=== PATIENT | male | born 1960 | race African-American/Black ===

== ENCOUNTER 2018-06-01 18:59 | Inpatient (IN) | payer MEDICAID ==
[~2018-06-01] VITALS: Ht 180.3 cm; Wt 69.9 kg
--- NOTE | 2018-06-01 19:06 | NUR ---
ED Nurse Note: Patient biba, d/t hypotensive episode. PAtient had dialysis yesterday. patient vital signs stable at this time. EMT started bolus of 500ml ns.
[2018-06-01] MEDS ORDERED: DILANTIN100 MG ORAL (19:07)
[2018-06-01] MEDS ORDERED: COLACE100 MG ORAL (19:07)
[2018-06-01] MEDS ORDERED: PRAVACHOL40 MG ORAL (19:07)
[2018-06-01] MEDS ORDERED: TYLENOL325 MG ORAL (19:07)
[2018-06-01] MEDS ORDERED: PROTONIX20 MG ORAL (19:07)
[2018-06-01] MEDS ORDERED: MOM30 ML ORAL (19:07)
[2018-06-01] MEDS ORDERED: CLONIDINE0.1 MG PO (19:07)
[2018-06-01] MEDS ORDERED: NORMODYNE300 MG ORAL (19:07)
[2018-06-01] MEDS ORDERED: FLEET ENEMA133 M1 RC (19:07)
[2018-06-01] MEDS ORDERED: ASPIR 8181 MG ORAL (19:07)
[2018-06-01] MEDS ORDERED: NORCO 5-325 TA1 EACH ORAL (19:07)
[2018-06-01] MEDS ORDERED: DULCOLAX10 MG RC ×2 (19:07→21:04)
[2018-06-01 19:08] VITALS: BP 108/64
--- NOTE | 2018-06-01 19:48 | NUR ---
ED Nurse Note: Patient started on 1/2 liter of normal saline bolus. vital signs stable, labs drawn. patient is A&Ox4, no signs/ symptoms of acute distress.
[2018-06-01 19:49] VITALS: BP 110/52
[2018-06-01 19:52] LABS: HEMATOCRIT 34.4 % (42.0-52.0); HEMOGLOBIN 11.4 G/DL (14.2-18.0); MEAN CORPUSCULAR VOLUME 79 FL (80-99); PLATELET COUNT 92 K/UL (150-450); RED BLOOD COUNT 4.35 M/UL (4.70-6.10); RED CELL DISTRIBUTION WIDTH 13.4 % (11.6-14.8)
[2018-06-01 20:04] LABS: ANION GAP 11 mmol/L (5-15); BLOOD UREA NITROGEN 56 mg/dL (7-18); CALCIUM 7.3 MG/DL (8.5-10.1); CARBON DIOXIDE 27 MMOL/L (21-32); CHLORIDE 97 MMOL/L (98-107); CREATININE 10.1 MG/DL (0.55-1.30); POTASSIUM 4.4 MMOL/L (3.5-5.1); SODIUM 135 MMOL/L (136-145)
[2018-06-01 20:17] LABS: ALANINE AMINOTRANSFERASE 24 U/L (12-78); ALBUMIN 3.4 G/DL (3.4-5.0); ALKALINE PHOSPHATASE 325 U/L (46-116); ASPARTATE AMINO TRANSFERASE 26 U/L (15-37); BILIRUBIN,TOTAL 0.3 MG/DL (0.2-1.0); CKMB 4.5 NG/ML (0.0-3.6); CREATINE KINASE 400 U/L (26-308)
[2018-06-01 20:24] VITALS: BP 118/57
--- NOTE | 2018-06-01 20:24 | NUR ---
ED Nurse Note: Patient is resting comfortably in and out of sleep. Vital signs stable.
[2018-06-01] MEDS ORDERED: CATAPRES0.1 MG ORAL (20:57)
[2018-06-01] MEDS ORDERED: AMLODIPINE BESY10 MG ORAL (20:57)
[2018-06-01] MEDS ORDERED: FLEET ENEMA133 ML RECTAL (21:04)
[2018-06-01] MEDS ORDERED: MILK OF MA400 MG/51 ORAL (21:04)
[2018-06-01] MEDS ORDERED: MINOXIDIL2.5 MG PO ×2 (21:04)
--- NOTE | 2018-06-01 21:08 | Emergency Room Report ---
History of Present Illness General Chief Complaint: General Complaint Source: Patient, EMS Present Illness HPI Patient presents from facility with reports of low blood pressure Patient had dialysis yesterday is due for dialysis tomorrow Has significant renal failure on dialysis and eyes any chest pain He does report general weakness and eyes any diarrhea denies any chest pain or shortness of breath denies any vomiting or diarrhea Denies any change in medications Allergies: Coded Allergies: No Known Allergies (Unverified , 06/01/18) Patient History Past Medical History: see triage record Pertinent Family History: none Reviewed Nursing Documentation: PMH: Agreed; PSxH: Agreed Nursing Documentation-PMH Past Medical History: No History, Except For Hx Seizures: Yes Review of Systems All Other Systems: negative except mentioned in HPI Physical Exam Vital Signs Date Time Temp Pulse Resp B/P (MAP) Pulse Ox O2 Delivery O2 Flow Rate FiO2 06/01/18 18:53 97.3 70 16 108/64 99 Nasal Cannula 2.0 Sp02 EP Interpretation: reviewed, normal General Appearance: no apparent distress Head: normocephalic, atraumatic Eyes: bilateral eye PERRL, bilateral eye EOMI ENT: hearing grossly normal, normal pharynx, TMs + canals normal, uvula midline Neck: full range of motion, supple, no meningismus, no bony tend Respiratory: lungs clear, normal breath sounds, no rhonchi, no respiratory distress, no retraction, no accessory muscle use Cardiovascular #1: normal peripheral pulses, regular rate, rhythm, no edema, no gallop, no JVD, no murmur Gastrointestinal: normal bowel sounds, non tender, soft, no mass, no organomegaly, non-distended, no guarding, no hernia, no pulsatile mass, no rebound Genitourinary: no CVA tenderness Musculoskeletal: normal inspection Neurologic: oriented x3, responsive, chemical process equipment operator III-XII nml as tested, motor strength/ tone normal, sensory intact Psychiatric: mood/affect normal Skin: warm/dry, palpation normal, other - Jaundice appearance Lymphatic: normal inspection, no adenopathy Medical Decision Making Diagnostic Impression: Primary Impression: Hypotension Additional Impression: Renal failure ER Course Patient is a fairly complex patient with multiple differential to consideration including but not limited to cardiac cardiopulmonary and vascular emergencies Infectious pathology also entertained highly hemodynamic instability patient had small bolus of fluids has responded well given his presentation and reports will be admitted for further inpatient care Labs Test 06/01/18 19:39 White Blood Count 6.0 K/UL (4.8-10.8) Red Blood Count 4.35 M/UL (4.70-6.10) Hemoglobin 11.4 G/DL (14.2-18.0) Hematocrit 34.4 % (42.0-52.0) Mean Corpuscular Volume 79 FL (80-99) Mean Corpuscular Hemoglobin 26.1 PG (27.0-31.0) Mean Corpuscular Hemoglobin Concent 33.0 G/DL (32.0-36.0) Red Cell Distribution Width 13.4 % (11.6-14.8) Platelet Count 92 K/UL (150-450) Mean Platelet Volume 7.3 FL (6.5-10.1) Neutrophils (%) (Auto) % (45.0-75.0) Lymphocytes (%) (Auto) % (20.0-45.0) Monocytes (%) (Auto) % (1.0-10.0) Eosinophils (%) (Auto) % (0.0-3.0) Basophils (%) (Auto) % (0.0-2.0) Sodium Level 135 MMOL/L (136-145) Potassium Level 4.4 MMOL/L (3.5-5.1) Chloride Level 97 MMOL/L (98-107) Carbon Dioxide Level 27 MMOL/L (21-32) Anion Gap 11 mmol/L (5-15) Blood Urea Nitrogen 56 mg/dL (7-18) Creatinine 10.1 MG/DL (0.55-1.30) Estimat Glomerular Filtration Rate 6.5 mL/min (>60) Glucose Level 125 MG/DL (74-106) Calcium Level 7.3 MG/DL (8.5-10.1) Total Bilirubin 0.3 MG/DL (0.2-1.0) Aspartate Amino Transf (AST/SGOT) 26 U/L (15-37) Alanine Aminotransferase (ALT/SGPT) 24 U/L (12-78) Alkaline Phosphatase 325 U/L (46-116) Total Creatine Kinase 400 U/L (26-308) Creatine Kinase MB 4.5 NG/ML (0.0-3.6) Creatine Kinase MB Relative Index 1.1 Troponin I 0.065 ng/mL (0.000-0.056) Total Protein 6.9 G/DL (6.4-8.2) Albumin 3.4 G/DL (3.4-5.0) Globulin 3.5 g/dL Albumin/Globulin Ratio 1.0 (1.0-2.7) Lipase 546 U/L (73-393) Rhythm Strip Diag. Results EP Interpretation: yes Rate: 60 Rhythm: NSR, no PVC's, no ectopy Chest X-Ray Diagnostic Results Chest X-Ray Diagnostic Results : Chest X-Ray Ordered: Yes # of Views/Limited/Complete: 1 View Indication: Chest Pain EP Interpretation: Yes Interpretation: no consolidation, no effusion, no pneumothorax Impression: No acute disease - Mild pulmonary congestion Electronically Signed by: Marissa Chan DO Last Vital Signs Date Time Temp Pulse Resp B/P (MAP) Pulse Ox O2 Delivery O2 Flow Rate FiO2 06/01/18 20:24 97.3 68 15 118/57 100 Room Air 68 06/01/18 19:08 2.0 Status: improved Disposition: ADMITTED INPATIENT Condition: Serious Marissa Chan DO Jun 01, 2018 21:08
[2018-06-01] MEDS ORDERED: SENSIPAR90 MG PO (21:09)
[2018-06-01] MEDS ORDERED: SENNA8.6 M2 PO (21:09)
[2018-06-01] MEDS ORDERED: RENA-VITE TABL0.8 M1 PO (21:09)
[2018-06-01] MEDS ORDERED: VITAMIN D1000 UNI1 ORAL (21:09)
[2018-06-01] MEDS ORDERED: ACETAMINOPHEN325 M1 ORAL (21:09)
--- NOTE | 2018-06-01 21:46 | NUR ---
ED Nurse Note: Patient cleared for transport for admission, Patient a&ox4, ambulatory, no skin issues, swabs done r/t dialysis and snf, belongings sheet completed, report called in to Mackenzie SMITH prior to transport. Patient transported to [facility] by RN and Andie along with director of cardiac rehabilitation. Patient stable upon arrival to floor.
--- NOTE | 2018-06-01 21:50 | NUR ---
NURSE NOTES: Received report from Charito Das ED RN. Pt came via vee w/o incident. Belonging checked and nick setter applied. SR 60 in the monitor. Seizure precaution was done with side rails padded x2 and up. Safety measures are applied w/ bed alarm on, bed in lowest position, side rials up x2, and breaks are engaged. IV site is at LFA 18G with SL and AV shunt is at Left thigh femoral vein, asymptomatic. Will contact PCP to complete admission orders. Addendum: 06/01/18 at 8282 by CINTHYA ARRINGTON RN Paged second attempt to Dr. Ibarra at , awaiting call back. Addendum: 06/02/18 at 0029 by CINTHYA ARRINGTON RN Dr. Ibarra called and gave admission orders of full code, Renal diet, Heparin 5000 unit sq Q12HR. Plt 92 reported, no parameter given by PCP. Other abnormal labts reported, and Dr. Ibarra stated that all of labs would be corrected after HD next day.
[2018-06-01 22:00] VITALS: BP 134/87
[2018-06-02] VITALS: BP 144/79
[2018-06-02] MEDS ORDERED: Milk of Magnesia 30ml Ud ORAL PRN
[2018-06-02] MEDS: Norco 5mg/325mg tab ORAL PRN ×3 (00:54→17:41)
--- NOTE | 2018-06-02 02:25 | NUR ---
NURSE NOTES: NURSE NOTES: Pt is sleeping in the bed w/o distress. SR in the monitor, VSS. Will continue to monitor.
[2018-06-02 04:00] VITALS: BP 147/77
--- NOTE | 2018-06-02 06:13 | NUR ---
NURSE NOTES: Pt is receiving HD by [facility]. Pt is tolerating well with it. HD nurse said he did not have to give Hep 2000 unit for HD at this time.
--- NOTE | 2018-06-02 07:23 | NUR ---
HAND-OFF: Report given to Nick Huff RN. Endorsed plans of care.
--- NOTE | 2018-06-02 07:25 | NUR ---
NURSE NOTES: Pt received from LUIS Mann alert and oriented x3, talking and mumbling to himself. Pt complains of 10/10 aching pain in lower legs. No complaints or s/s of pain or SOB. RN informed pt that she will administer pain medication with morning meds if his BP is stable, pt nodded his head. IV site asymptomatic and patent. HD nurse finished scheduled HD and stated that pt had 2.5 L output. IV site asymptomatic and patent. Bed in lowest position, call light and belongings within reach.
[2018-06-02 07:30] LABS: HEMATOCRIT 36.2 % (42.0-52.0); HEMOGLOBIN 12.4 G/DL (14.2-18.0); MEAN CORPUSCULAR VOLUME 78 FL (80-99); PLATELET COUNT 99 K/UL (150-450); RED BLOOD COUNT 4.67 M/UL (4.70-6.10); RED CELL DISTRIBUTION WIDTH 13.4 % (11.6-14.8); WHITE BLOOD COUNT 5.2 K/UL (4.8-10.8)
[2018-06-02 07:56] LABS: ANION GAP 11 mmol/L (5-15); BLOOD UREA NITROGEN 42 mg/dL (7-18); CALCIUM 8.3 MG/DL (8.5-10.1); CARBON DIOXIDE 26 MMOL/L (21-32); CHLORIDE 100 MMOL/L (98-107); CREATININE 7.3 MG/DL (0.55-1.30); PHOSPHORUS 3.4 MG/DL (2.5-4.9); POTASSIUM 4.6 MMOL/L (3.5-5.1); SODIUM 137 MMOL/L (136-145)
[2018-06-02 08:00] VITALS: BP 117/62
[2018-06-02] MEDS: Sensipar 30mg Tab ORAL SCH (08:09)
[2018-06-02] MEDS: Phenytoin 100mg cap ORAL SCH ×2 (08:09→17:40)
[2018-06-02] MEDS: Docusate 100mg cap ORAL SCH (08:09)
[2018-06-02] MEDS: Vitamin D 1000 IU Tab ORAL SCH (08:09)
[2018-06-02] MEDS: Nephrovite tab (Rena-Vite) ORAL SCH (08:09)
[2018-06-02] MEDS: Aspirin Baby 81mg ORAL SCH (08:09)
[2018-06-02] MEDS: Heparin 5000 units/ml inj SUBQ SCH ×2 (08:18→21:00)
--- NOTE | 2018-06-02 11:39 | Diagnostic Imaging Report ---
Indication: Chest Comparison: 03/23/2009 A single view chest radiograph was obtained. Findings: Some vascular prominence demonstrated. Cardiomegaly is present. Bones are osteopenic. No pleural effusion seen. IMPRESSION: Vascular prominence without overt CHF.
[2018-06-02 12:00] VITALS: BP 140/75
--- NOTE | 2018-06-02 13:40 | Cardiology Report ---
APPROVED REPORT EKG Measurement Heart [id number] Sinus rhythm with 1st degree AV block Left anterior fascicular block Anterolateral infarct, age undetermined Abnormal ECG
[2018-06-02 16:00] VITALS: BP_SYST 132; BP_SYST 133; BP_SYST 135; BP_SYST 136; BP_DIAS 75; BP_DIAS 82; BP_DIAS 83
--- NOTE | 2018-06-02 19:10 | NUR ---
CASE MANAGEMENT: REVIEW 57/M BIBA FROM [facility] CC: HYPOTENSION BP 85/42 SI: RENAL FAILURE T 97.3 HR 70 RR 16 BP 110/52 SAT 99% NC/2L NA 135 BUN 56 CR 10.1 TROPONIN I 0.065 LIPASE 546 IS: NS IVF BOLUS X1 PATIENT ADMITTED TO TELEMETRY UNIT 06/01/2018 DCP: PATIENT IS FROM [facility]
--- NOTE | 2018-06-02 19:20 | NUR ---
NURSE NOTES: Received pt. and report from LUIS Larson. Observe pt. resting in bed with eyes open. desk monitor is in placed, IV site intact, asymptomatic and patent. Bed is in the lowest position and locked, call light within reach. Seizure precaution noted; no seizures at this time. No acute distress noted at this time. Will continue plan of care.
--- NOTE | 2018-06-02 19:30 | NUR ---
HAND-OFF: Report given to Roxane Holland RN.
[2018-06-02 20:00] VITALS: BP_SYST 123; BP_SYST 143; BP_SYST 150; BP_DIAS 69; BP_DIAS 72; BP_DIAS 74
[2018-06-02] MEDS: Sennosides 8.6mg tab ORAL SCH (21:06)
[2018-06-02] MEDS ORDERED: Heparin Sod 1000 units/ml 10ml IV ONE (22:30)
[2018-06-03] VITALS: BP 121/73
[2018-06-03 04:00] VITALS: BP 147/75
[2018-06-03] MEDS: Norco 5mg/325mg tab ORAL PRN (05:02)
--- NOTE | 2018-06-03 07:00 | NUR ---
HAND-OFF: Report given to LUIS Larson.
--- NOTE | 2018-06-03 07:15 | NUR ---
NURSE NOTES: Pt received from My Amalia, RN alert and oriented x2 with no complaints or s/s of pain, SOB, or n/v. 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 IV site asymptomatic and patent. Bed in lowest position, call light and belongings within reach.
[2018-06-03 08:00] VITALS: BP_SYST 129; BP_SYST 135; BP_SYST 137; BP_SYST 139; BP_DIAS 78; BP_DIAS 80; BP_DIAS 81; BP_DIAS 85
[2018-06-03] MEDS: Docusate 100mg cap ORAL SCH (08:39)
[2018-06-03] MEDS: Sensipar 30mg Tab ORAL SCH (08:39)
[2018-06-03] MEDS: Nephrovite tab (Rena-Vite) ORAL SCH (08:40)
[2018-06-03] MEDS: Heparin 5000 units/ml inj SUBQ SCH ×2 (08:40→20:20)
[2018-06-03] MEDS: Aspirin Baby 81mg ORAL SCH (08:40)
[2018-06-03] MEDS: Vitamin D 1000 IU Tab ORAL SCH (08:40)
[2018-06-03] MEDS: Phenytoin 100mg cap ORAL SCH ×2 (08:40→17:29)
--- NOTE | 2018-06-03 08:45 | History and Physical Report ---
CHIEF COMPLAINT: Dizziness. HISTORY OF PRESENT ILLNESS: This is a 67-year-old male who is a resident of [facility]. The patient was sent via 911 to this hospital's emergency department after experiencing the dizziness and hypotension. His systolic blood pressure went down to 70. The patient was seen in the ER. He was given a bolus of IV fluids and his blood pressure systolic went up to more than 100. PAST MEDICAL HISTORY: 1. End-stage renal failure on dialysis. 2. Seizure disorder. 3. Anemia of chronic kidney disease. 4. Hypertensive cardiovascular disease. HOME MEDICATIONS: 1. Tylenol p.r.n. 2. Amlodipine. 3. Baby aspirin. 4. Dulcolax. 5. Vitamin D3. 6. Sensipar. 7. Catapres. 8. Colace. 9. Keri-David. 10. Labetalol. 11. Milk of magnesia. 13. Fleet enema. 14. Protonix. 15. Dilantin. 16. Pravachol. 17. Senna. 18. Dilantin. ALLERGIES: No known drug allergies. FAMILY HISTORY: Unremarkable. SOCIAL HISTORY: He lives in a half-way. HABITS: He is nonsmoker and nondrinker. There is no history of illicit drug abuse. REVIEW OF SYSTEMS: HEENT: Hearing and eyesight are normal. CARDIAC: He denies chest pain or palpitations. GASTROINTESTINAL: No history of hematochezia, melena, hematemesis, diarrhea, or constipation. NEUROLOGICAL: Significant for history of seizures. PHYSICAL EXAMINATION: GENERAL: This is an elderly male who is in no acute distress. VITAL SIGNS: Blood pressure 140/75, pulse 68 regular, respirations 20, and temperature 97.4. HEENT: The head is normocephalic and atraumatic. Pupils are equal, round, and reactive to light and accommodation consensually. NECK: Supple. Trachea midline. There was no lymphadenopathy or thyromegaly. LUNGS: Clear to auscultation and percussion. HEART: Regular rate and rhythm without rubs, murmurs, or gallops. ABDOMEN: Soft and nontender. Bowel sounds were active. EXTREMITIES: No clubbing, cyanosis, or edema. He has a left groin fistula with thrill and bruit. NEUROLOGICAL: He is alert and oriented x4. Cranial nerves II through XII intact. LABORATORY AND ANCILLARY DATA: CBC within normal limits. Serum chemistry, BUN predialysis 42, creatinine 7.3, electrolytes within normal limits. Troponin level 0.065. ASSESSMENT: 1. Hypotension due to overmedication with blood pressure pills. 2. End-stage renal failure on dialysis. 3. Seizure disorder. 4. Anemia of chronic kidney disease. 5. Hypertensive cardiovascular disease. PLAN: 1. His blood pressure therapy has been readjusted aggressively with holding most of the blood pressure medications. 2. Hemodialysis done already today. 3. Check orthostatic vital signs. Claudia Camp M.D. DR: Radha JOB#: [id number] CC: ARNEL
[2018-06-03 12:00] VITALS: BP 151/85
--- NOTE | 2018-06-03 14:43 | Nephrology Progress Note ---
Assessment/Plan Plan Dizziness - R/O Dilantin Toxicity check stat level. ESRD HD TTS. Hope to DC if VSS Subjective Neurologic/Psychiatric: Denies: no symptoms, anxiety, depressed, emotional problems, headache, numbness, paresthesia, pre-existing deficit, seizure, tingling, tremors, weakness, other Subjective c/o dizziness! Objective Objective Last 24 Hour Vital Signs Date Time Temp Pulse Resp B/P (MAP) Pulse Ox O2 Delivery O2 Flow Rate FiO2 06/03/18 12:00 98.2 68 22 151/85 (107) 99 06/03/18 12:00 71 06/03/18 09:00 74 77 87 06/03/18 09:00 Room Air 06/03/18 08:00 72 06/03/18 08:00 98.2 74 20 135/85 (102) 100 74 137/80 (99) 77 139/78 (98) 87 129/81 (97) 06/03/18 04:00 70 06/03/18 04:00 97.2 73 19 147/75 (99) 95 06/03/18 00:00 98.2 74 19 121/73 (89) 98 06/03/18 00:00 65 06/02/18 21:00 74 78 86 06/02/18 21:00 Room Air 06/02/18 20:00 88 06/02/18 20:00 98.8 74 19 123/69 (87) 97 123/69 (87) 150/72 (98) 143/74 (97) 06/02/18 16:00 98.0 71 19 135/82 (99) 94 68 133/75 (94) 71 136/82 (100) 73 132/83 (99) 06/02/18 16:00 69 06/02/18 15:39 68 71 132 Intake and Output 06/02/18 06/03/18 19:00 07:00 Intake Total 710 ml 380 ml Output Total 5000 ml Balance -4290 ml 380 ml Intake Oral 710 ml 380 ml Output Hemodialysis UF 2500 ml Other 2500 ml # Voids 2 1 Height (Feet): 5 Height (Inches): 11.00 Weight (Pounds): 160 Objective CV RR Lungs CTA Abd SNT. BS + E No CCE. L Claudia Hernandez MD Jun 03, 2018 14:43
[2018-06-03] MEDS ORDERED: Heparin Sod 1000 units/ml 10ml IV PRN (15:00)
--- NOTE | 2018-06-03 15:11 | NUR ---
NURSE NOTES: Spoke with and confirmed scheduled [facility] dialysis for 06/04 6am-6pm with Margaret.
[2018-06-03 16:00] VITALS: BP 145/75
--- NOTE | 2018-06-03 19:15 | NUR ---
NURSE NOTES: Received pt. and report from LUIS Larson. Observe pt. resting in bed with eyes open. bus monitor is in placed, IV site intact, asymptomatic and patent. Bed is in the lowest position and locked, call light within reach. Seizure precaution noted; bed rails are padded, suction and oxygen at bedside. No seizures or acute distress noted at this time. Will continue plan of care.
--- NOTE | 2018-06-03 19:25 | NUR ---
HAND-OFF: Report given to Roxane Holland RN.
[2018-06-03 20:00] VITALS: BP 149/93
[2018-06-03] MEDS: Sennosides 8.6mg tab ORAL SCH (20:16)
--- NOTE | 2018-06-03 23:08 | General Progress Note ---
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
[2018-06-04] VITALS: BP_SYST 155; BP_SYST 159; BP_SYST 161; BP_DIAS 100; BP_DIAS 86; BP_DIAS 96
[2018-06-04] MEDS: Norco 5mg/325mg tab ORAL PRN (01:47)
[2018-06-04 04:00] VITALS: BP 156/70
[2018-06-04 06:46] LABS: HEMATOCRIT 36.7 % (42.0-52.0); HEMOGLOBIN 12.5 G/DL (14.2-18.0); MEAN CORPUSCULAR VOLUME 77 FL (80-99); PLATELET COUNT 94 K/UL (150-450); RED BLOOD COUNT 4.75 M/UL (4.70-6.10); RED CELL DISTRIBUTION WIDTH 13.3 % (11.6-14.8)
[2018-06-04 06:50] LABS: ANION GAP 13 mmol/L (5-15); BLOOD UREA NITROGEN 78 mg/dL (7-18); CALCIUM 8.4 MG/DL (8.5-10.1); CARBON DIOXIDE 25 MMOL/L (21-32); CHLORIDE 99 MMOL/L (98-107); CREATININE 12.4 MG/DL (0.55-1.30); SODIUM 139 MMOL/L (136-145)
[2018-06-04 07:00] LABS: POTASSIUM 6.1 MMOL/L (3.5-5.1)
--- NOTE | 2018-06-04 07:15 | NUR ---
NURSE NOTES: Received potassium results from Rosalind. Noted and endorsed results to LUIS Dias.
--- NOTE | 2018-06-04 07:27 | NUR ---
NURSE NOTES: Received bedside report from Nely SMITH. Pt. OOB up in the bathroom. A/O x3. Forgetful at times. Denies pain at present. IV site left FA #18g. in placed SL. AV shunt at left femoral, no s/sx of bleeding noted. Previous shift paged Dr. Young for critical K+ of 6.1 awaiting for response. HD from [facility] schedule for today. Bed in low posito Addendum: 06/04/18 at 0801 by LOVE BARBOUR RN, RN Bed in low posiiton, locked. Call light within reach. Will cont. to monitor.
--- NOTE | 2018-06-04 07:38 | NUR ---
HAND-OFF: Report given to LUIS Dias.
[2018-06-04 08:00] VITALS: BP 148/81
[2018-06-04] MEDS: Heparin 5000 units/ml inj SUBQ SCH ×2 (09:00→20:31)
[2018-06-04] MEDS: Vitamin D 1000 IU Tab ORAL SCH (09:39)
[2018-06-04] MEDS: Phenytoin 100mg cap ORAL SCH ×2 (09:40→18:59)
[2018-06-04] MEDS: Nephrovite tab (Rena-Vite) ORAL SCH (09:40)
[2018-06-04] MEDS: Docusate 100mg cap ORAL SCH (09:40)
[2018-06-04] MEDS: Aspirin Baby 81mg ORAL SCH (09:41)
[2018-06-04] MEDS: Sensipar 30mg Tab ORAL SCH (10:12)
[2018-06-04 12:00] VITALS: BP 157/75
--- NOTE | 2018-06-04 15:28 | NUR ---
RD ASSESSMENT & RECOMMENDATIONS SEE CARE ACTIVITY FOR COMPLETE ASSESSMENT DAILY ESTIMATED NEEDS: Needs based on ESRD, HD/ 73kg 25-30 kcals/kg 9226-2732 total kcals 1.2-1.8 g protein/kg 87-131 g total protein 20-22 mL/kg 0180-4421 total fluid mLs NUTRITION DIAGNOSIS: Increased kcal/prot needs R/T renal dysfunction as evidenced by ESRD dx, on HD. CURRENT DIET:RENAL PO DIET RECOMMENDATIONS: RENAL/ texture as tolerated ADDITIONAL RECOMMENDATIONS: * Calibrated bedscale wt for accurate CBW * Obtain dry wt post HD * Monitor lytes and renal fxn closely- K critically elev at this time
[2018-06-04 16:00] VITALS: BP 151/83
--- NOTE | 2018-06-04 16:01 | Diagnostic Imaging Report ---
APPROVED REPORT CPT Code: 84996 Present Symptoms Comments: Evaluate the Left leg AVF LEFT LOWER EXTREMITY: Imaging reveals patency of the arterio-venous fistula, the greater saphenous vein to the femoral artery, at the upper thigh level. Elevated velocities 75%) in the distal anastomotic site. The venous outflow is widely patent. There is no evidence of pseudo-aneurysm or hematoma around the arterio-venous fistula. Proximal common femoral artery: 136 cm/s Proximal AVF: 0.5 cm X 0.9 cm, 461 cm/s Mid AVF: 0.3 cm X 1.3 cm, 636 cm/s Anastomosis: 0.54 cm, 557 cm/s Superficial femoral artery: distal 60 cm/s Common femoral artery waveform analysis was within normal limits at rest. Color flow duplex sonography reveals patency of the superficial femoral and popliteal, and tibial arteries. Doppler tibial artery waveform analysis is within normal limits, left leg.
--- NOTE | 2018-06-04 16:13 | Nephrology Progress Note ---
Assessment/Plan Plan Dizziness - Dilantin level wnl ESRD HD TTS.Done DC to SNF Subjective Subjective c/o toe pain! Objective Objective Last 24 Hour Vital Signs Date Time Temp Pulse Resp B/P (MAP) Pulse Ox O2 Delivery O2 Flow Rate FiO2 06/04/18 12:00 97.5 61 21 157/75 (102) 97 06/04/18 09:00 Room Air 06/04/18 09:00 66 65 73 06/04/18 08:00 97.5 66 21 99 06/04/18 08:00 97.5 66 21 148/81 (103) 99 06/04/18 07:41 65 06/04/18 04:00 97.2 73 18 156/70 (98) 97 06/04/18 04:00 65 06/04/18 00:00 70 06/04/18 00:00 97.4 73 18 155/86 (109) 98 155/86 (109) 159/100 (119) 161/96 (117) 06/03/18 21:00 73 78 80 06/03/18 21:00 Room Air 06/03/18 20:00 98.4 74 18 149/93 (111) 99 06/03/18 20:00 62 Intake and Output 06/03/18 06/04/18 19:00 07:00 Intake Total 120 ml Balance 120 ml Intake Oral 120 ml # Voids 3 2 Laboratory Tests 06/04/18 05:47: White Blood Count 8.0, Red Blood Count 4.75, Hemoglobin 12.5L, Hematocrit 36.7L , Mean Corpuscular Volume 77L, Mean Corpuscular Hemoglobin 26.4L, Mean Corpuscular Hemoglobin Concent 34.1, Red Cell Distribution Width 13.3, Platelet Count 94L, Mean Platelet Volume 10.1, Neutrophils (%) (Auto) , Lymphocytes (%) ( Auto) , Monocytes (%) (Auto) , Eosinophils (%) (Auto) , Basophils (%) (Auto) , Differential Total Cells Counted 100, Neutrophils % (Manual) 70, Lymphocytes % ( Manual) 19L, Monocytes % (Manual) 9, Eosinophils % (Manual) 2, Basophils % ( Manual) 0, Band Neutrophils 0, Platelet Estimate DecreasedL, Platelet Morphology Normal, Hypochromasia 1+, Microcytosis 2+, Sodium Level 139, Potassium Level 6.1*H, Chloride Level 99, Carbon Dioxide Level 25, Anion Gap 13 , Blood Urea Nitrogen 78H, Creatinine 12.4H, Estimat Glomerular Filtration Rate 5.1, Glucose Level 66L, Calcium Level 8.4L Height (Feet): 5 Height (Inches): 11.00 Weight (Pounds): 170 Objective CV RR Lungs CTA Abd SNT. BS + E No CCE. L Claudia Hernandez MD Jun 04, 2018 16:13
[2018-06-04] MEDS ORDERED: PROTONIX40 MG ORAL (16:18)
[2018-06-04] MEDS ORDERED: VITAMIN D1000 UNI1 ORAL (16:18)
[2018-06-04] MEDS ORDERED: DOK100 M1 ORAL (16:18)
[2018-06-04] MEDS ORDERED: NORCO 5-325 TA1 EACH ORAL (16:18)
[2018-06-04] MEDS ORDERED: PRAVACHOL20 MG ORAL (16:18)
[2018-06-04] MEDS ORDERED: SENSIPAR30 MG ORAL (16:18)
[2018-06-04] MEDS ORDERED: SENNA8.6 M2 ORAL (16:18)
[2018-06-04] MEDS ORDERED: NEPHROVITE1 TAB ORAL (16:18)
[2018-06-04] MEDS ORDERED: DILANTIN100 MG ORAL (16:18)
[2018-06-04] MEDS ORDERED: ASPIRIN81 MG ORAL (16:18)
[2018-06-04] MEDS ORDERED: MOM30 ML ORAL (16:18)
--- NOTE | 2018-06-04 17:32 | NUR ---
NURSE NOTES: Called Michelle (ERNESTINA) and told her about the - d/c order back to [facility]. Told RN that d/c will happen tomorrow due to no room available today.
--- NOTE | 2018-06-04 19:35 | NUR ---
NURSE NOTES: Received pt. and report from LUIS Dias. Observe pt. resting in bed with eyes open. alarm security or surveillance monitor is in placed, IV site intact, asymptomatic and patent. Bed is in the lowest position and locked, call light within reach. No acute distress noted at this time. Will continue plan of care.
--- NOTE | 2018-06-04 19:46 | NUR ---
HAND-OFF: Report given to Nely RN. Pt. remain stable.
--- NOTE | 2018-06-04 19:48 | NUR ---
NURSE NOTES: Contacted [facility] and spoke to Margaret about the delayed of hemodialysis today. Margaret said there may be a back up and that she will rely the message to dialysis nurse.
[2018-06-04 20:00] VITALS: BP 155/83
[2018-06-04] MEDS: Sennosides 8.6mg tab ORAL SCH (20:31)
--- NOTE | 2018-06-04 20:55 | NUR ---
NURSE NOTES: Removed IV per pt.'s request. Pt. stated that the IV site was painful. Pt. refused another IV insertion.
--- NOTE | 2018-06-04 22:10 | NUR ---
NURSE NOTES: Informed Dr. Camp that pt. did not get dialyzed today; still awaiting for [facility] to arrive.
--- NOTE | 2018-06-04 22:13 | NUR ---
NURSE NOTES: Spoke to [facility] dialysis nurse, Clarence about the delayed of hemodialysis today. Clarence stated that he was endorsed that pt. was discharged. Informed Clarence that pt. was scheduled to be dialyzed today prior to D/C per Dr. Camp. Clarence stated that he will dialyzed pt. in the morning.
--- NOTE | 2018-06-04 22:15 | NUR ---
NURSE NOTES: Informed Dr. Camp that pt. had a D/C order and classroom monitor is taken off. Dr. Camp replied okay.
[2018-06-05] VITALS: BP 152/73
[2018-06-05] MEDS: Norco 5mg/325mg tab ORAL PRN ×2 (00:36→20:57)
[2018-06-05 04:00] VITALS: BP 154/87
--- NOTE | 2018-06-05 06:01 | NUR ---
NURSE NOTES: Pt. is currently receiving hemodialysis by Clarence MELENDREZ.
--- NOTE | 2018-06-05 07:43 | NUR ---
HAND-OFF: Report given to LUIS Clifton.
[2018-06-05 08:00] VITALS: BP 130/70
[2018-06-05] MEDS: Heparin 5000 units/ml inj SUBQ SCH ×2 (09:00→20:58)
[2018-06-05] MEDS: Nephrovite tab (Rena-Vite) ORAL SCH (09:50)
[2018-06-05] MEDS: Aspirin Baby 81mg ORAL SCH (09:51)
[2018-06-05] MEDS: Docusate 100mg cap ORAL SCH (09:51)
[2018-06-05] MEDS: Vitamin D 1000 IU Tab ORAL SCH (09:51)
[2018-06-05] MEDS: Phenytoin 100mg cap ORAL SCH ×2 (09:51→19:06)
[2018-06-05] MEDS: Sensipar 30mg Tab ORAL SCH (09:56)
--- NOTE | 2018-06-05 10:15 | NUR ---
*-* DISCHARGE PLANNED *-* PATIENT IS DISCHARGE BACL TO: [facility] ROOM# 32-C ALF T:[phone] FOR NURSE TO NURSE REPORT [facility] HAS BEEN ARRANGED FOR DIRECTOR EDUCATIONAL RADIO AT [address] [place] [id number] FAMILY NOTIFICATION ATTEMPTED LEFT VM LETTING FAMILY KNOW PT WAS BEING D/C BACK TO [facility] TO ROOM 32-C
[2018-06-05 12:00] VITALS: BP 129/71
--- NOTE | 2018-06-05 14:49 | Nephrology Progress Note ---
Assessment/Plan Plan Dizziness - Dilantin level wnl ESRD HD TTS.Done DC to SNF Subjective Subjective c/o toe pain! Objective Objective Last 24 Hour Vital Signs Date Time Temp Pulse Resp B/P (MAP) Pulse Ox O2 Delivery O2 Flow Rate FiO2 06/05/18 12:00 98.6 79 18 129/71 (90) 100 06/05/18 09:00 Room Air 06/05/18 08:00 98.1 78 19 130/70 (90) 100 06/05/18 04:00 98.3 73 19 154/87 (109) 99 06/05/18 00:00 97.0 70 17 152/73 (99) 100 06/04/18 21:00 Room Air 06/04/18 21:00 67 74 77 06/04/18 20:00 97.4 67 18 155/83 (107) 99 06/04/18 16:01 61 06/04/18 16:00 97.5 83 21 151/83 (105) 98 Intake and Output 06/04/18 06/05/18 19:00 07:00 Intake Total 200 ml Output Total 600 ml Balance -600 ml 200 ml Intake Oral 200 ml Output Urine Total 600 ml Height (Feet): 5 Height (Inches): 11.00 Weight (Pounds): 171 Objective CV RR Lungs CTA Abd SNT. BS + E No CCE. Claudia Martins MD Jun 05, 2018 14:49
[2018-06-05 16:00] VITALS: BP 131/72
--- NOTE | 2018-06-05 17:44 | NUR ---
NURSE NOTES: Patient c/o chest pain, to jaw and bilateral thighs 10/10. Did stat EKG and Jim, charge nurse, paged Dr. Claudia Camp. Patient reports pain subsided.
--- NOTE | 2018-06-05 17:51 | NUR ---
NURSE NOTES: Jim, Charge Nurse, paged Dr. Claudia Camp regarding patient report of chest pain, lower jaw pain, and bilateral thigh pain, also, Jim and myself, separately, notified LUIS Rios, Computer Game Programmer. BLS placed on will call, notified LUIS Rios, Computer Game Programmer.
--- NOTE | 2018-06-05 17:56 | NUR ---
NURSE NOTES: Patient placed on 2 liters nasal cannula.
--- NOTE | 2018-06-05 18:11 | NUR ---
NURSE NOTES: Patient resting comfortably, chest pain, jaw pain, and bilateral thigh pain have resolved=0/10, easily aroused. Will continue to monitor patient.
[2018-06-05 20:00] VITALS: BP 141/65
--- NOTE | 2018-06-05 20:10 | NUR ---
HAND-OFF: Report given to Danna Sanchez RN. Patient in semi-Matos's position, resting comfortably, respirations at 16 breaths per minute, bed in lowest position, call light within reach, no c/o pain, no SOB. Endorsing follow-up with Dr. Claudia Young (to page, again) regarding chest/jaw/upper thigh pain. EKG in chart.
--- NOTE | 2018-06-05 20:11 | NUR ---
NURSE NOTES: Received pt from LUIS Abreu. Pt asleep. Bed in lowest position. Call light within reach. Will continue to monitor.
[2018-06-05] MEDS: Sennosides 8.6mg tab ORAL SCH (20:58)
--- NOTE | 2018-06-05 22:45 | Consultation ---
DATE OF CONSULTATION: 06/03/2018 VASCULAR SURGERY CONSULTATION: CONSULTING PHYSICIAN: Mario Perez M.D. REFERRING PHYSICIAN: Claudia Camp M.D. REASON FOR CONSULTATION: Left thigh shunt evaluation. HISTORY OF PRESENT ILLNESS: This is a 57-year-old male, who suffers from end-stage renal failure, on hemodialysis. The patient presented from the [place] [facility] experiencing dizziness and low blood pressure. His blood pressure was down to 70s, responded to IV fluids. Vascular Surgery is consulted to evaluate the left thigh AV fistula. PAST MEDICAL HISTORY: As above. History of seizure disorder, hypertension, chronic anemia, end-stage renal failure on hemodialysis, history of central vein occlusion, left thigh superficial femoral vein transposition AV fistula. MEDICATIONS: See attached MAR. ALLERGIES: No known drug allergies. SOCIAL HISTORY: No history of smoking, drugs, or alcohol abuse. He lives in a [place] [facility]. FAMILY HISTORY: Unremarkable. SYSTEM REVIEW: CARDIOVASCULAR: No history of chest pain or palpitation. PULMONARY: No cough or hemoptysis. GASTROINTESTINAL: No history of abdominal pain, constipation, or diarrhea. GENITOURINARY: No urinary symptoms. NEUROLOGIC: No history of strokes or seizures. PHYSICAL EXAMINATION: GENERAL: Elderly male, no signs of distress. He is awake, alert, afebrile. VITAL SIGNS: Temperature 97.4, respirations 20, heart rate 68, blood pressure 140/75. Has palpable radial pulses. No history of carotid bruits. LUNGS: Clear to auscultation. HEART: Regular rate and rhythm. ABDOMEN: Soft and nontender. SKIN: Clear, dry, and intact. EXTREMITIES: He has a palpable left thigh arteriovenous fistula. He has palpable pedal pulses. Feet are warm and well perfused. LABORATORY DATA: Revealed a BUN of 42, creatinine 10.3. Troponin 0.065. IMPRESSION: 1. Patent left thigh superficial femoral vein transposition arteriovenous fistula. 2. Prior history of left external iliac vein stenosis, status post angioplasty. 3. History of anemia. 4. Chronic kidney disease. 5. Hypertension. 6. Seizure disorder. 7. Admitted with low blood pressure and dizziness. PLAN AND RECOMMENDATIONS: We will obtain left thigh AV shunt duplex. Continue dialysis through the left thigh AV fistula. Neurology and medical optimization in progress. Continue with the lower extremity CHRISSY stockings below the knee. Mariochi Perez M.D. DR: TRINI JOB#: [id number] CC: Claudia Camp M.D.; Fax#: [phone]
[2018-06-06] VITALS: BP 143/73
[2018-06-06 04:00] VITALS: BP 154/86
--- NOTE | 2018-06-06 06:39 | NUR ---
NURSE NOTES: Dr Camp called and gave me orders for NG for CP PRN and CBC, BMP. Will continue to monitor.
[2018-06-06] MEDS ORDERED: Nitroglycerin Patch 0.1mg TDERMAL PRN (06:45)
[2018-06-06] MEDS: Norco 5mg/325mg tab ORAL PRN ×2 (06:49→22:10)
--- NOTE | 2018-06-06 07:22 | NUR ---
HAND-OFF: Report given to LUIS Abreu. Pt stable.
--- NOTE | 2018-06-06 07:31 | NUR ---
NURSE NOTES: Patient in supine position, awake and alert to name, bed in lowest position, call light within reach, no SOB, no c/o pain, breakfast at bedside.
[2018-06-06 08:00] VITALS: BP 130/84
[2018-06-06 08:47] LABS: HEMATOCRIT 35.3 % (42.0-52.0); HEMOGLOBIN 11.8 G/DL (14.2-18.0); MEAN CORPUSCULAR VOLUME 78 FL (80-99); PLATELET COUNT 85 K/UL (150-450); RED BLOOD COUNT 4.55 M/UL (4.70-6.10); RED CELL DISTRIBUTION WIDTH 13.3 % (11.6-14.8); WHITE BLOOD COUNT 8.1 K/UL (4.8-10.8)
[2018-06-06] MEDS: Heparin 5000 units/ml inj SUBQ SCH ×2 (09:00→21:00)
[2018-06-06] MEDS ORDERED: Heparin Sod 1000 units/ml 10ml IV PRN (09:00)
[2018-06-06 09:11] LABS: ANION GAP 12 mmol/L (5-15); BLOOD UREA NITROGEN 83 mg/dL (7-18); CALCIUM 8.2 MG/DL (8.5-10.1); CARBON DIOXIDE 26 MMOL/L (21-32); CHLORIDE 99 MMOL/L (98-107); CREATININE 13.8 MG/DL (0.55-1.30); POTASSIUM 5.9 MMOL/L (3.5-5.1); SODIUM 137 MMOL/L (136-145)
[2018-06-06] MEDS: Sensipar 30mg Tab ORAL SCH (09:12)
[2018-06-06] MEDS: Nephrovite tab (Rena-Vite) ORAL SCH (09:13)
[2018-06-06] MEDS: Docusate 100mg cap ORAL SCH (09:13)
[2018-06-06] MEDS: Aspirin Baby 81mg ORAL SCH (09:13)
[2018-06-06] MEDS: Vitamin D 1000 IU Tab ORAL SCH (09:13)
[2018-06-06] MEDS: Phenytoin 100mg cap ORAL SCH ×2 (09:14→17:49)
--- NOTE | 2018-06-06 11:29 | Nephrology Progress Note ---
Assessment/Plan Plan CP - see orders + Card. eval. ESRD HD TTS. DC to SNF held Subjective Subjective DC held due to CP!. Still ongoing. Objective Objective Last 24 Hour Vital Signs Date Time Temp Pulse Resp B/P (MAP) Pulse Ox O2 Delivery O2 Flow Rate FiO2 06/06/18 09:00 Room Air 06/06/18 08:00 79 06/06/18 08:00 97.7 67 20 130/84 (99) 94 06/06/18 04:00 82 06/06/18 04:00 97.9 98 20 154/86 (108) 99 06/06/18 00:00 99.4 80 20 143/73 (96) 97 06/05/18 21:00 Room Air 06/05/18 21:00 80 79 0 06/05/18 20:00 98.0 80 20 141/65 (90) 97 06/05/18 16:00 98.0 79 19 131/72 (91) 98 06/05/18 16:00 61 06/05/18 12:00 98.6 79 18 129/71 (90) 100 Intake and Output 06/05/18 06/06/18 19:00 07:00 Intake Total 900 ml Output Total 600 ml Balance 900 ml -600 ml Other 900 ml Output Urine Total 600 ml # Voids 3 Laboratory Tests 06/06/18 08:35: White Blood Count 8.1, Red Blood Count 4.55L, Hemoglobin 11.8L, Hematocrit 35.3L , Mean Corpuscular Volume 78L, Mean Corpuscular Hemoglobin 25.9L, Mean Corpuscular Hemoglobin Concent 33.4, Red Cell Distribution Width 13.3, Platelet Count 85L, Mean Platelet Volume 7.9, Neutrophils (%) (Auto) , Lymphocytes (%) ( Auto) , Monocytes (%) (Auto) , Eosinophils (%) (Auto) , Basophils (%) (Auto) , Neutrophils % (Manual) [Pending], Lymphocytes % (Manual) [Pending], Platelet Estimate [Pending], Platelet Morphology [Pending], Sodium Level 137, Potassium Level 5.9H, Chloride Level 99, Carbon Dioxide Level 26, Anion Gap 12, Blood Urea Nitrogen 83H, Creatinine 13.8H, Estimat Glomerular Filtration Rate 4.5, Glucose Level 97, Calcium Level 8.2L Height (Feet): 5 Height (Inches): 11.00 Weight (Pounds): 151 Objective CV RR Lungs CTA Abd SNT. BS + E No CCE. L Claudia Hernandez MD Jun 06, 2018 11:29
[2018-06-06 12:00] VITALS: BP 152/86
--- NOTE | 2018-06-06 12:12 | NUR ---
NURSE NOTES: Lab called reporting an abnormal result of 0.102. Also Dr. Camp ordered an EKG. EKG results and troponin results were communicated to Dr. Camp. No new orders. Endorsed to bedside nurse Brady SMITH.
--- NOTE | 2018-06-06 15:05 | Consultation ---
Consult Note Assessment/Plan Cardiology for Dr. Ruiz Full consult dictated #[id number] Carla Brown MD Jun 06, 2018 15:05
--- NOTE | 2018-06-06 15:14 | NUR ---
NURSE NOTES: I spoke with Bhavna MELENDREZ to inquire about the scheduled dialysis for today. She said she will call back in 30 minutes.
[2018-06-06 16:00] VITALS: BP 145/84
--- NOTE | 2018-06-06 16:26 | NUR ---
NURSE NOTES: Message left to Dr. saleem in regards to [facility] not calling back. Will wait for call back but will follow chain of command. Endorsed to bedside nurse Brady/JESUS
--- NOTE | 2018-06-06 16:45 | Consultation ---
DATE OF CONSULTATION: 06/06/2018 CARDIOLOGY CONSULTATION This note is a Cardiology consult coverage for Dr. Rosi Ruiz. REQUESTING PHYSICIAN: Claudia Camp M.D. REASON FOR CONSULT: Chest pain. HISTORY OF PRESENT ILLNESS: The patient is a 57-year-old, man with a history of hypertension and end-stage renal disease on chronic hemodialysis, who was admitted from the ER on 06/01/2018 transferred from the convalescent facility, with hypotension. In the ER, blood pressure was 108/64 and pulse 70. His EKG showed sinus rhythm with premature ventricular contractions. He was admitted for further treatment. He has undergone an adjustment of his dialysis and was treated with reports of hypotension at the facility, blood pressure systolic down to 70. In the emergency room, blood pressure improved with a bolus of intravenous fluids. He underwent hemodialysis per Dr. Camp and adjustment of his blood pressure medication. He has been scheduled for discharge following dialysis today, however last night, he complained of chest pain. He has a history of schizophrenia and is a poor historian. Today, he reports having episodes of chest pain at night as well as diffuse body pain and leg pain. He does not recall any previous history of cardiac disease. His initial troponin was 0.065 repeat 0.10. His EKG shows left ventricular hypertrophy with QRS widening. No ST-segment changes. PAST MEDICAL HISTORY: As noted above. History of hypertension, end-stage renal disease, on hemodialysis, history of seizures, and history of schizophrenia. MEDICATIONS: Nitroglycerin patch q.24 hours, Pravachol 40 mg at bedtime, Senokot 17.2 mg at bedtime, subcutaneous heparin 5000 units q.12 hours, aspirin 81 mg daily, vitamin D 1000 units daily, Dilantin 200 mg twice daily, Sensipar 90 mg daily, Protonix 40 mg daily, Wilbraham 5/325 every 6 hours p.r.n., and Protonix 40 mg daily. ALLERGIES: No known drug allergies. SOCIAL HISTORY: The patient states that he smokes one to two cigarettes per day. Denies alcohol or drug use. PHYSICAL EXAMINATION: VITAL SIGNS: Blood pressure is 152/86, pulse 72 and regular, respirations 18, and afebrile. GENERAL: Alert, well-developed male, in no acute distress. HEENT: Normocephalic and atraumatic. Pupils are equal, round, and reactive to light. Sclerae anicteric. Oral mucosa are moist. NECK: Supple. There is no jugular venous distention. LUNGS: Coarse breath sounds bilaterally. No rales or wheezes. HEART: Regular S1 and S2. No murmurs, rubs, S3, or S4. ABDOMEN: Soft and nontender. No palpable masses. EXTREMITIES: There are multiple healed surgical scars from previous vascular access procedures over the left arm, right and left leg. There is a left lower extremity AV shunt and a positive bruit. No palpable distal lower extremity pulses, but extremities are warm and perfused. LABORATORY DATA: Potassium 5.9, BUN 83, creatinine 13.8, and sodium 137. Troponin 0.065 on 06/01/2018 and repeat today 0.10. Hemoglobin 11.8, hematocrit 35, white blood count 8100, and platelets 85,000. EKG is a technically poor tracing, showed sinus rhythm at the rate of 73 beats per minute, right atrial enlargement, IVCD, and Q-waves in 1 and aVL (QRS complexes in 1 and aVL are change from admission EKG). ASSESSMENT AND RECOMMENDATIONS: The patient is a 57-year-old man with chronic medical problems as outlined above, who had an episode of chest pain last evening. He does not have acute ischemic changes. So, his EKG does appear changed from admission. His troponin is borderline and this may be due to renal failure. I would recommend checking additional troponin levels and we will obtain an echo to evaluate left ventricular function. I would not pursue further workup for ischemia unless the patient has further typical episodes of chest pain or significant findings to suggest left ventricular function and wall motion. I would not pursue further invasive workup for myocardial ischemia unless objective findings or typical anginal symptoms. We would continue medical therapy with aspirin and statin and would also consider initiation of beta hemanth. Dr. Guerra will continue to follow this patient starting 06/08/2018. Carla Brown M.D. DR: GUIDO JOB#: [id number] CC:
--- NOTE | 2018-06-06 16:56 | NUR ---
NURSE NOTES: Charity from [facility] called and does not have a nurse, at this time, to come dialyze the patient. She will call us back when she has someone to dialyze the patient. Call this morning was logged into Dialysis Time Log 06/05/18 at 1115. LUIS Duran, Charge Nurse notified.
--- NOTE | 2018-06-06 18:20 | NUR ---
NURSE NOTES: Charity called from [facility] and stated that she spoke with Dr. Claudia Camp and he is ok with dialysis for tomorrow. Charity confirmed hemodialysis for 06/07/18.
--- NOTE | 2018-06-06 19:29 | NUR ---
HAND-OFF: Report given to Danna Sanchez RN. Patient sitting up bed,awake and alert, watching television, on room air, no SOB, no c/o pain, bed in lowest position, call light within reach, urinal at bedside.
--- NOTE | 2018-06-06 19:30 | NUR ---
NURSE NOTES: Received pt from LUIS Abreu. Pt awake, alert, and talkative. Bed in lowest position. Call light within reach. Will continue to monitor.
[2018-06-06 20:00] VITALS: BP 140/80
[2018-06-06] MEDS: Sennosides 8.6mg tab ORAL SCH (22:11)
[2018-06-06] MEDS: Metoprolol Tartrate 12.5mg TAB ORAL SCH (22:12)
[2018-06-07] VITALS: BP 153/84
--- NOTE | 2018-06-07 03:34 | NUR ---
NURSE NOTES: Called and left a message with [facility] regarding pts hemodialysis order. They confirmed a nurse will come.
[2018-06-07 04:00] VITALS: BP 167/92
--- NOTE | 2018-06-07 04:49 | NUR ---
NURSE NOTES: Paged Dr. Camp regarding pts HTN. Awaiting call back for PRN meds.
--- NOTE | 2018-06-07 05:44 | NUR ---
NURSE NOTES: Dr. Camp called back with no new orders for pts htn. Will continue to monitor.
[2018-06-07] MEDS: Norco 5mg/325mg tab ORAL PRN (05:57)
--- NOTE | 2018-06-07 07:37 | NUR ---
HAND-OFF: Report given to Neo. Pt stable.
--- NOTE | 2018-06-07 07:46 | NUR ---
NURSE NOTES: Pt received from Danna Sanchez, LUIS alert and oriented x3 with moments of forgetfulness. No acute distress at this time. No IV site at this time, will try to insert one later. Bed in lowest position, call light and belongings within reach. HD Young from [facility] called - "she is on her way in for dialysis", informed pt - pt verbalized understanding.
[2018-06-07 08:00] VITALS: BP_SYST 140; BP_SYST 142; BP_SYST 145; BP_DIAS 85; BP_DIAS 87; BP_DIAS 98
[2018-06-07] MEDS: Vitamin D 1000 IU Tab ORAL SCH (08:42)
[2018-06-07] MEDS: Nephrovite tab (Rena-Vite) ORAL SCH (08:42)
[2018-06-07] MEDS: Phenytoin 100mg cap ORAL SCH (08:43)
[2018-06-07] MEDS: Docusate 100mg cap ORAL SCH (08:43)
[2018-06-07] MEDS: Heparin 5000 units/ml inj SUBQ SCH (08:43)
[2018-06-07] MEDS: Metoprolol Tartrate 12.5mg TAB ORAL SCH (08:43)
[2018-06-07] MEDS: Aspirin Baby 81mg ORAL SCH (08:43)
[2018-06-07] MEDS: Sensipar 30mg Tab ORAL SCH (08:43)
--- NOTE | 2018-06-07 09:15 | NUR ---
CASE MANAGEMENT: REVIEW 06/07/2018 SI: RENAL FAILURE T 98.7 HR 67 RR 24 B/P 167/92 SATS 95% ON RA NO LABS TODAY IS: DILANTIN PO BID PRAVACHOL PO QHS ASA PO QD NEPHROVITE PO QD SENSIPAR PO QD LOPRESSOR PO Q12H TELE STATUS DCP: PATIENT IS FROM [facility]
--- NOTE | 2018-06-07 11:00 | NUR ---
NURSE NOTES: Pt received HD - output 2.5L out
[2018-06-07 12:00] VITALS: BP 148/74
--- NOTE | 2018-06-07 12:01 | Cardiology Report ---
APPROVED REPORT EXAM: Two-dimensional and M-mode echocardiogram with Doppler and color Doppler. INDICATION Chest Pain M-Mode DIMENSIONS IVSd2.8 (0.7-1.1cm)Left Atrium (MM)4.9 (1.6-4.0cm) LVDd4.5 (3.5-5.6cm)Aortic Root3.6 (2.0-3.7cm) PWd2.3 (0.7-1.1cm)Aortic Cusp Exc.2.0 (1.5-2.0cm) LVDs3.1 (2.5-4.0cm) PWs2.6 cm Normal left ventricular chamber size, systolic function and wall motion. Left ventricular ejection fraction estimated to be 55 %. Moderate to severe left ventricular hypertrophy. No evidence of pericardial effusion. Mild left atrial enlargement. Right cardiac chamber sizes are within normal limits. Focal aortic valve sclerosis with adequate cusp excursion. Mildly thickened mitral valve leaflets with normal excursion. Mild mitral annulus and aortic root calcification. Normal pulmonic valve structure. Normal tricuspid valve structure. IVC is normal in size with physiological collapse. A color flow and spectral Doppler study was performed and revealed: No aortic insufficiency. Moderate mitral regurgitation. Normal left ventricular diastolic function. Mild to moderate tricuspid regurgitation. Tricuspid systolic velocities suggests peak right ventricular systolic pressure of 67 mmHg, consistent with severe pulmonary hypertension. Mild pulmonic regurgitation present.
--- NOTE | 2018-06-07 13:56 | NUR ---
NURSE NOTES: Pt discharged back to [facility] in stable condition, picked up by [facility]. VSS stable, no acute distress upon discharge. No IV site upon discharge, patient wristband removed. No wounds upon discharge. Pt signed and left with belongings - pair of jeans, white shirt, black sneakers, and brown belt. Report, medication and discharge information relayed to receiving facility LUIS - Darryn from [facility] . Tele box removed. No wounds upon discharge. RN left message to aries [place] regarding discharge - .
--- NOTE | 2018-06-07 14:01 | Nephrology Progress Note ---
Assessment/Plan Plan CP - see orders + Card. eval. Seen. Atypical CP ESRD HD TTS. Had HD. DC to SNF. Subjective Subjective DC held due to CP!. Still ongoing. Objective Objective Last 24 Hour Vital Signs Date Time Temp Pulse Resp B/P (MAP) Pulse Ox O2 Delivery O2 Flow Rate FiO2 06/07/18 12:00 97.5 69 20 148/74 (98) 98 06/07/18 09:00 Room Air 06/07/18 09:00 68 70 75 06/07/18 08:43 68 140/87 06/07/18 08:00 67 06/07/18 08:00 97.6 68 24 140/87 (104) 97 06/07/18 08:00 68 142/85 (104) 70 145/98 (114) 75 142/85 (104) 06/07/18 04:00 98.7 67 24 167/92 (117) 95 06/07/18 04:00 73 06/07/18 00:00 73 06/07/18 00:00 98.5 73 20 153/84 (107) 95 06/06/18 22:12 72 140/80 06/06/18 21:00 Room Air 06/06/18 21:00 67 67 67 06/06/18 20:00 70 06/06/18 20:00 98.9 72 20 140/80 (100) 97 06/06/18 16:00 97.5 72 20 145/84 (104) 97 06/06/18 16:00 74 Intake and Output 06/06/18 06/07/18 19:00 07:00 Intake Total 360 ml Balance 360 ml Intake Oral 360 ml # Voids 2 1 # Bowel Movements 1 Height (Feet): 5 Height (Inches): 11.00 Weight (Pounds): 154 Objective CV RR Lungs CTA Abd SNT. BS + E No CCE. L Claudia Hernandez MD Jun 07, 2018 14:01
--- NOTE | 2018-06-08 13:42 | Discharge Summary ---
Discharge Summary Discharge Summary _ DATE OF ADMISSION: 06/01/2018 DATE OF DISCHARGE: 06/07/2018 DISCHARGED BY: Dr. Camp REASON FOR ADMISSION: 57 years old male with past medical history, anemia of chronic kidney disease, hypertensive cardiovascular disease, seizure disorder, resident of [facility], was sent to emergency room by ambulance after experiencing hypotension. Systolic blood pressure went down to 70. After receiving 1 L of bolus blood pressure improved. Patient was afebrile . Laboratory workup revealed no leukocytosis, hemoglobin 11.4, hematocrit 24.4, platelets 92. Stable electrolytes, BUN 56, creatinine 10.1 consistent with known history of end-stage renal disease. Glucose 125. Stable LFT. Troponin slightly elevated- 0.065 . EKG revealed normal sinus rhythm , no acute ischemic changes. Albumin 3.4 Chest x-ray revealed mild congestion. Patient was admitted for further management. CONSULTANTS: boot trimmer Dr. Reed vascular surgeon Dr. Perez HOSPITAL COURSE: Patient admitted to telemetry floor. Second troponin still with minimal elevation. Hemodialysis provided per tobacco sample puller recommendations with close monitoring of volumes, electrolytes and cardiorenal parameters. Electrolytes corrected as needed. Antihypertensive medication regimen was optimized. Initially all antihypertensive medications were on hold. Antiplatelet therapy with aspirin and statin were continued. Nitroglycerin was on board as needed. Low dose of beta hemanth was started when blood pressure stabilized. Echocardiogram revealed preserved ejection fraction 55%. No evidence of wall motion abnormality. Moderate to severe left ventricular hypertrophy. Moderate mitral regurgitation. Right ventricular pressure of 67, consistent with severe pulmonary hypertension Cardiology followed. Per cardiology , minimal troponin elevation was likely due to renal failure. No further workup for ischemia was necessary , unless patient would experience typical episodes of chest pain or significant findings of ventricular dysfunction and wall motion abnormality. Medical therapy was continued with antiplatelet therapy and statin . Beta- hemanth initiated when blood pressure stabilized. DVT and GI prophylaxis provided. 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 Patient had left thigh superficial femoral transposition arteriovenous fistula with thrill present, no leg edema, intact Dopplers. Dialysis Duplex imaging of left thigh AV fistula was done and reviewed by vascular surgeon, who recommended to continue hemodialysis via left arteriovenous fistula and apply high CHRISSY stockings at all times. Seizure precautions were maintained. Dilantin was continued. No evidence of seizure activity while in the hospital. . Pain management was addressed as needed. Supportive care provided. Bowel regimen instituted. Patient clinically stabilized and was ready for transfer back to assisted facility for continuation of care. FINAL DIAGNOSES: Hypotension due to overmedication with blood pressure pills-resolved End-stage renal failure, on hemodialysis Mild elevation in troponin , likely due to renal failure Seizure disorder Hypertensive cardiac disease Anemia of chronic kidney disease Left thigh superficial femoral vein transposition arteriovenous fistula History of left external iliac vein stenosis, status post angioplasty Severe pulmonary hypertension Moderate mitral regurgitation DISCHARGE MEDICATIONS: See Medication Reconciliation list. DISCHARGE INSTRUCTIONS: Patient was discharged to the assisted facility. Follow up with medical doctor at the facility. I have been assigned to dictate discharge summary for this account. I was not involved in the patient's management. Lisa Moise NP Jun 08, 2018 13:42
--- NOTE | 2018-06-09 14:17 | Cardiology Report ---
APPROVED REPORT EKG Measurement Heart [id number] MD [id number] Normal sinus rhythm Nonspecific intraventricular block Vincent-lateral infarct, age undetermined Abnormal ECG
== END 2018-06-07 13:55 | DRG 812 ==
LOC: EDBD 18:59 → EMR 21:07 → 2E 21:17 → EDBEDREQ 21:38 → EMR 21:46 → 2E 06-05 06:13
PROC: 5A1D70Z Performance of Urinary Filtration, Intermittent, Less than 6 Hours Per Day (ICD-10-PCS; principal; 2018-06-01)
PROC: 5A1D70Z Performance of Urinary Filtration, Intermittent, Less than 6 Hours Per Day (ICD-10-PCS; 2018-06-03)
PROC: 5A1D70Z Performance of Urinary Filtration, Intermittent, Less than 6 Hours Per Day (ICD-10-PCS; 2018-06-06)
DX: T46.5X1A Poisoning by other antihypertensive drugs, accidental (unintentional), initial encounter (principal); I13.11 Hypertensive heart and chronic kidney disease without heart failure, with stage 5 chronic kidney disease, or end stage renal disease; I27.20 Pulmonary hypertension, unspecified; F20.9 Schizophrenia, unspecified; I95.2 Hypotension due to drugs; N18.6 End stage renal disease; G40.909 Epilepsy, unspecified, not intractable, without status epilepticus; I34.0 Nonrheumatic mitral (valve) insufficiency; D63.1 Anemia in chronic kidney disease; F17.210 Nicotine dependence, cigarettes, uncomplicated; Y92.9 Unspecified place or not applicable; Z99.2 Dependence on renal dialysis
CPT/HCPCS: 36415; 71045; 80048; 80053; 80185; 82550; 82553; 82962; 83690; 84100; 84484; 85007; 85025; 87081; 93005; 93306; 93990; 99285